=== PATIENT | female | born 1985 | race Caucasian/White ===

== ENCOUNTER 2021-01-20 19:51 | Outpatient (REF) | payer BC, SELFPAY | END 2021-01-20 19:52 | disposition home or self-care (01) | LOC: LBN 19:51 | PROVIDERS: Visit Provider Naturopath | DX: J02.8 Acute pharyngitis due to other specified organisms (principal) | CPT/HCPCS: 87081 ==

== ENCOUNTER 2025-06-04 18:22 | Outpatient (REF) | payer BC, SELFPAY ==
[2025-06-04 19:29] LABS: Glucose Negative (Negative)
== END 2025-06-04 18:23 | disposition home or self-care (01) ==
LOC: LBN 18:22
PROVIDERS: Visit Provider Naturopath
DX: R35.0 Frequency of micturition (principal); R10.11 Right upper quadrant pain
CPT/HCPCS: 81003

== ENCOUNTER 2025-08-20 10:10 | Outpatient (REF) | payer BC, SELFPAY ==
[2025-08-20 16:30] LABS: TSH (W/Ref FT4) 1.68 uIU/mL (0.55-4.78); Vitamin D 25 Total 37 ng/mL (30-100)
[2025-08-20 16:41] LABS: Cholesterol 146 mg/dL (<200); HDL Cholesterol 54 mg/dL (>40)
== END 2025-08-20 10:11 | disposition home or self-care (01) ==
LOC: NCHCN 10:10
PROVIDERS: PCP Physician Assistant; Visit Provider Physician Assistant
DX: E78.2 Mixed hyperlipidemia (principal); R63.5 Abnormal weight gain; Z86.39 Personal history of other endocrine, nutritional and metabolic disease
CPT/HCPCS: 80061; 82306; 84443